=== PATIENT | male | born 1940 | race Asian ===

== ENCOUNTER 2023-01-01 20:46 | Emergency (ER) | payer OTHER ==
[~2023-01-01] VITALS: Ht 167.6 cm; Wt 62.6 kg
[2023-01-01 20:46] VITALS: BP 121/65; TEMP 97.6
[2023-01-01 21:25] LABS: PLATELET COUNT 294 K/uL (142-355)
[2023-01-01 21:59] LABS: POTASSIUM 3.8 mmol/L (3.6-5.2)
[2023-01-02] MEDS ORDERED: ALLO100T22 PO (06:23)
[2023-01-02] MEDS ORDERED: MEMANTINE HYDRO28 MG PO (06:24)
[2023-01-02] MEDS ORDERED: LISI20TA31 PO (06:24)
[2023-01-02] MEDS ORDERED: QUETIAPINE50 MG PO ×2 (06:25→06:26)
[2023-01-02] MEDS ORDERED: MELATONIN3 M1 PO (06:28)
[2023-01-02] MEDS ORDERED: SIMV40TA57 (06:30)
== END 2023-01-01 23:10 | disposition still patient (30) ==
LOC: ED 20:46
PROVIDERS: Family Medicine
DX: R45.6 Violent behavior (principal); R45.1 Restlessness and agitation; F03.90 Unspecified dementia, unspecified severity, without behavioral disturbance, psychotic disturbance, mood disturbance, and anxiety; F41.9 Anxiety disorder, unspecified; Z02.79 Encounter for issue of other medical certificate
CPT/HCPCS: 36415; 80053; 85027; 87635; 93005; 99283; U0003